=== PATIENT | male | born 1995 | race Caucasian/White ===

== ENCOUNTER 2018-09-01 19:21 | Emergency (ER) | payer OTHER ==
[2018-09-01] MEDS: KETOROLAC TROMETHAMINE 10 MG TAB PO (20:59)
== END 2018-09-01 21:00 | disposition home or self-care (01) ==
LOC: M ED 19:21
DX: M54.9 Dorsalgia, unspecified (principal)
CPT/HCPCS: 99282

== ENCOUNTER 2018-09-27 14:34 | Emergency (ER) | payer OTHER | END 2018-09-27 16:42 | disposition home or self-care (01) | LOC: M ED 14:34 | DX: S60.221A Contusion of right hand, initial encounter (principal); S60.222A Contusion of left hand, initial encounter; S80.11XA Contusion of right lower leg, initial encounter; S80.12XA Contusion of left lower leg, initial encounter; S60.511A Abrasion of right hand, initial encounter; S60.512A Abrasion of left hand, initial encounter; S80.811A Abrasion, right lower leg, initial encounter; S80.812A Abrasion, left lower leg, initial encounter; W16.112A Fall into natural body of water striking water surface causing other injury, initial encounter; Y92.89 Other specified places as the place of occurrence of the external cause | CPT/HCPCS: 73130 ==

== ENCOUNTER → 2019-04-22 | Outpatient (CLI) | payer OTHER ==
[~2019-04-22] MED LIST: KETO10TAB PO
--- NOTE | 2019-04-22 09:08 | REP ---
MR LUMBAR SPINE WITHOUT CONTRAST: HISTORY: Back pain. There is no disc bulge or herniation at the L1-2, L2-3 and L5-S1 levels. The nerves exit the neural foramina without compression. A diffuse disc bulge is present at the L3-4 level. There is minimal compression of the thecal sac. The L3 nerves exit the neural foramina without compression. A diffuse disc bulge is present at the L4-5 level. There is minimal compression of the thecal sac. The L4 nerves exit the neural foramina without compression. The conus medullaris is normal in appearance terminating at the level of the L1 vertebral body. Normal signal intensity is present in the lumbar intervertebral discs and vertebral bodies. IMPRESSION: 1. Diffuse disc bulges at the L3-4 and L4-5 levels with minimal thecal sac compression. Electronically Signed by Samuel Blair MD 04/22/2019 09:14 A
== END ==
LOC: M RAD 06:40
PROVIDERS: ATTEND Physician Assistant Medical
DX: M51.26 Other intervertebral disc displacement, lumbar region (principal)

== ENCOUNTER 2019-10-26 12:58 | Emergency (ER) | payer OTHER ==
[~2019-10-26] VITALS: Ht 193 cm; Wt 149.1 kg
[2019-10-26] MEDS ORDERED: LIDO1PAD (13:05)
[2019-10-26 13:49] LABS: BASO # 0.1 10^3/uL (0.0-0.2); BASO % 1.2 % (0.0-1.0); EOS # 0.1 10^3/uL (0.0-0.5); EOS % 0.6 % (0.0-3.0); HEMATOCRIT 49.2 % (42.0-52.0); HEMOGLOBIN 16.1 g/dl (13.5-17.5); LYMPH # 1.7 10^3/uL (1.5-5.0); LYMPH % 21.4 % (24.0-44.0); MEAN CORPUSCULAR HEMOGLOBIN 30.1 pg (27.0-33.0); MEAN CORPUSCULAR HGB CONC 32.7 g/dl (32.0-36.5); MONO # 0.6 10^3/uL (0.0-0.8); NEUTROPHILS # 5.6 10^3/uL (1.5-8.5); NEUTROPHILS % 69.4 % (36.0-66.0); PLATELET COUNT, AUTOMATED 266 10^3/uL (150-450); RED BLOOD COUNT 5.35 10^6/uL (4.30-6.10); WHITE BLOOD COUNT 8.1 10^3/uL (4.0-10.0)
[2019-10-26 14:17] LABS: ALBUMIN 4.1 GM/DL (3.2-5.2); ALT/SGPT 31 U/L (12-78); BILIRUBIN,DIRECT 0.2 MG/DL (0.0-0.2); BILIRUBIN,TOTAL 0.5 MG/DL (0.2-1.0); BLOOD UREA NITROGEN 12 MG/DL (7-18); CALCIUM LEVEL 9.2 MG/DL (8.5-10.1); CARBON DIOXIDE LEVEL 30 MEQ/L (21-32); CHLORIDE LEVEL 106 MEQ/L (98-107); CREATININE FOR GFR 1.21 MG/DL (0.70-1.30); GLOMERULAR FILTRATION RATE > 60.0 (>60); GLUCOSE, FASTING 83 MG/DL (70-100); LIPASE 142 U/L (73-393); POTASSIUM SERUM 4.1 MEQ/L (3.5-5.1); SODIUM LEVEL 141 MEQ/L (136-145); TOTAL PROTEIN 7.3 GM/DL (6.4-8.2)
--- NOTE | 2019-10-26 15:24 | REP ---
Two-view chest: 10/26/2019. Indication: Chest pain. Comparison: None. Findings: Poor inspiratory result and penetration are noted. There is no evidence for air space consolidation, pleural effusion or pneumothorax. The cardiomediastinal silhouette is unremarkable. Impression: No acute cardiopulmonary process. Electronically Signed by Steve Harrell DO 10/26/2019 03:15 P
[2019-10-26] MEDS ORDERED: ISOVUE-370 76% 100ML VIAL (Q9967) As Ordered ONE (15:30)
--- NOTE | 2019-10-26 16:13 | REP ---
Clinical: Right upper quadrant pain with positive Yusuf's sign. Technique: Axial contrast enhanced images from the lung bases to the pubic symphysis using 100 ml Isovue 370 intravenous contrast material with coronal and sagittal re-formations. Findings: Trace bibasilar and lingular atelectasis. Visualized heart and pericardium normal. Liver, spleen, pancreas, collapsed gallbladder, bilateral adrenal glands and kidneys are normal. The enteric system is without obstruction or acute inflammatory process. Normal terminal ileum and appendix are identified in the right lower quadrant. Pelvis demonstrates normal bladder and age appropriate prostate/seminal vesicles. No ascites. No free air. No adenopathy. Abdominal aorta and vasculature normal. Musculoskeletal structures intact. Impression: 1. Trace bibasilar and lingular atelectasis. 2. No acute abdominopelvic pathology appreciated. Electronically Signed by Acosta Wiggins MD 10/26/2019 04:04 P
[2019-10-26] MEDS ORDERED: AZIT-12 PO (18:45)
[2019-10-26 19:09] VITALS: BP 124/80
== END 2019-10-26 19:10 | disposition home or self-care (01) ==
LOC: M ED 12:58
DX: J98.11 Atelectasis (principal)
CPT/HCPCS: 36415; 71046; 74177; 80048; 80076; 81001; 83690; 85025; 94010; 99284; Q9967